=== PATIENT | male | born 1975 | race Two or more races ===

== ENCOUNTER 2017-05-25 22:03 | Emergency (ER) | payer SELFPAY ==
[~2017-05-25] VITALS: Ht 172.7 cm; Wt 99.8 kg
[2017-05-25 22:20] VITALS: BP 198/131
[2017-05-25] MEDS ORDERED: NIFEdipine 10 MG CAP PO ONE (22:30)
[2017-05-25 22:47] LABS: Basophils # (auto) 0.1 uL; Basophils % (auto) 0.6 % (0.0-2.0); CONDITION Y; Eosinophils # (auto) 0.3 uL; Eosinophils % (auto) 3.3 % (0.0-7.0); Lymphocytes # (auto) 3.2 uL; Lymphocytes % (auto) 32.1 % (10.0-50.0); Mean Corpuscular Hemoglobin 29.6 pg (28.0-32.0); Mean Corpuscular Volume 87.1 fL (80.0-100.0); Mean Platelet Volume 9.8 fL (7.4-10.4); Monocytes # (auto) 0.9 uL; Monocytes % (auto) 9.2 % (0.0-12.0); Neutrophils # (auto) 5.4 uL; Neutrophils % (auto) 54.8 % (37.0-80.0); Platelet Count (auto) 289 10^3/uL (140-450); Red Cell Distribution Width 13.1 % (11.6-16.0); White Blood Cell 9.9 10^3/uL (4.4-10.8)
[2017-05-25 23:00] LABS: INR 0.96 (0.9-1.15); Partial Thromboplastin Time 26.8 sec (22.64-33.71); Prothrombin Time 10.5 sec (9.37-12.3)
[2017-05-25 23:39] LABS: Chloride 106 mmol/L (98-107); Sodium 141 mmol/L (136-145)
[2017-05-25 23:43] LABS: Albumin 3.3 g/dL (3.4-5.0); Anion Gap 10 (5-15); BUN/Creatinine Ratio 9.7; Blood Urea Nitrogen 10 mg/dL (7-18); Calcium 8.1 mg/dL (8.5-10.1); Carbon Dioxide 25 mmol/L (21-32); GFR African American 103 mL/min; GFR Non-African American 85 mL/min; Glucose 201 mg/dL (74-106)
[2017-05-25 23:48] LABS: Alkaline Phosphatase 112 U/L (45-117); Bilirubin, Total 0.2 mg/dL (0.2-1.0); Total Protein 7.5 g/dL (6.4-8.2)
[2017-05-26 00:16] LABS: Potassium 3.8 mmol/L (3.5-5.1)
[2017-05-26 00:17] LABS: Aspartate Aminotransferase 51 U/L (15-37)
== END 2017-05-26 04:01 | disposition left against medical advice (07) ==
LOC: ER 22:05
DX: I10 Essential (primary) hypertension (principal); Z53.21 Procedure and treatment not carried out due to patient leaving prior to being seen by health care provider
CPT/HCPCS: 36415; 71020; 80053; 84484; 85025; 85610; 85730; 93005